=== PATIENT | male | born 1965 | race Caucasian/White ===

== ENCOUNTER 2016-10-28 05:53 | Emergency (ER) | payer MEDICAID ==
[2016-10-28 06:24] LABS: Hematocrit 29.7 % (42.0-52.0); Hemoglobin 10.3 gm/dL (13.5-18.0); Mean Cell Volume 93.4 fl (78-100); Mean Corpuscular Hemoglobin 32.4 pg (27-31); Mean Corpuscular Hgb Conc 34.7 g/dl (32-36); Neutrophil # 2.4 K/mm3 (1.3-6.0); Neutrophil % 51.1 % (42-75.0); Platelet Count 130 K/mm3 (150-450); Red Blood Count 3.18 M/mm3 (4.7-6.0); Red Cell Distribution Width 12.5 % (11.5-14.0); White Blood Count 4.8 K/mm3 (4.0-10.5)
--- NOTE | 2016-10-28 06:25 | ERNOTE ---
Upper Extremity HPI - General Extremities Pain Location: arm: left - tenderness and swelling Time Seen by Provider: 10/28/16 06:08 Source: patient Exam Limitations: no limitations - Immun/Allergies/Home Medications Immunizations: IMMUNIZATION HX Immunizations Up to Date Yes History of Influenza Vaccine No Hx Pneumococcal Vaccination No Allergies/Adverse Reactions: Allergies Allergy/AdvReac Type Severity Reaction Status Date / Time influenza virus vaccine, Allergy Severe Vomiting Verified 10/24/16 14:52 specific Home Medications: HOME MEDICATIONS Atorvastatin Calcium 40 mg PO HS #30 tablet 10/25/16 [Last Taken Unknown] Blood Sugar Checking Device 1 kit SC DAILY 365 Days 10/25/16 [Last Taken Unknown ] Fenofibrate,Micronized [Lofibra] 134 mg PO HS #30 capsule 10/25/16 [Last Taken Unknown] Insulin Detemir [Levemir] 37 units SC DAILY #2 vial 10/25/16 [Last Taken Unknown ] Montelukast Sodium [Singulair] 10 mg PO DAILY #30 tablet 10/25/16 [Last Taken Unknown] Pantoprazole Sodium [Protonix] 20 mg PO DAILY #30 tablet.dr 10/25/16 [Last Taken Unknown] Sertraline HCl [Zoloft] 50 mg PO DAILY #30 tablet 10/25/16 [Last Taken Unknown] amLODIPine BESYLATE [Norvasc] 5 mg PO DAILY #30 tablet 10/25/16 [Last Taken Unknown] - History of Present Illness Narrative: Pt was admitted to this hospital last week for acute kidney injury and hyperkalemia. His left arm began to be more swollen and sore soon after his admission and is continuing to worsen. He did have an IV in the left hand but not close to where he has pain Occurred: last week Severity: moderate Method of Injury: Reports: no apparent injury Modifying Factors - (Improves): Reports: immobilization Modifying Factors - (Worsens): Reports: movement Review of Systems - Review of Systems Constitutional: Present: recent illness EYE: Present: no symptoms reported ENT: Present: no symptoms reported Respiratory: Absent: shortness of breath Cardiology: Absent: chest pain Gastrointestinal/Abdominal: Present: no symptoms reported Genitourinary: Present: no symptoms reported Musculoskeletal: Present: See HPI, muscle pain - left bicep Skin: Absent: rash Neurological: Present: no symptoms reported - Patient's Past Medical History Patient History - Medical: Anxiety, Arthritis, Diabetes Type 2 Insulin Dependent , Depression, GERD Patient History - Cancer: No Hx of Cancer Patient History - Surgical Procedures: Vasectomy, Other - Family History Father Family History - Cardiac/Respiratory: Myocardial Infarction Mother Family History - Cardiac/Respiratory: CVA/Stroke, Myocardial Infarction - Social History Living Situations: home Smoking Status: Never smoker Have you smoked in the past 12 months: No Do you dip or chew tobacco: Yes Alcohol Use: occasionally Drug Use: none Physical Exam - Physical Exam General Appearance: Present: wd/wn, alert, mild distress Ears, Nose, Throat: Present: normal ENT inspection, hearing grossly normal Neck: Present: normal inspection, nontender Respiratory: Present: no respiratory distress, no accessory muscle use Back Exam: Present: normal inspection, normal range of motion Extremity Exam: Present: extremity edema - left upper extremity around upper arm , other - Tenderness specifically in the medial left arm just proximal to the elbow along brachial vein area Neurological Exam: Present: alert, oriented, normal mood/affect, no motor/ sensory deficits - some weakness to the left hand but due to pain not deficit Skin Exam: Present: normal color, warm/dry Lymphatic Exam: Present: no adenopathy ED Progress - Results and Orders Patient's Lab Results:: I have reviewed the patient's lab results. Results and Orders: Laboratory Tests 10/28/16 10/28/16 10/28/16 06:20 06:20 06:20 WBC 4.8 Hgb 10.3 L Hct 29.7 L Plt Count 130 L ESR 37 H D-Dimer C-Reactive Prot, Quant 0.6 10/28/16 06:20 WBC Hgb Hct Plt Count ESR D-Dimer 0.21 C-Reactive Prot, Quant - Vital Signs Patient's Vital Signs:: I have reviewed the patient's vital signs. Vital Signs: Vital Signs 10/28/16 05:53 Temperature 36.2 C L Pulse Rate 72 Respiratory 18 Rate Blood Pressure 146/85 O2 Sat by Pulse 100 Oximetry - Progress/Reassessment Chief Complaint: Upper Extremity Injury/Problem Departure Clinical Impression: Arm pain, medial Qualifiers: Laterality: right Qualified Code(s): M79.601 - Pain in right arm - Departure Disposition: Home self-care Condition: Good Instructions: Hematoma, [id number]-[id number] Additional Instructions: See your regular doctor or return to ER if you are worsening. Use Ibuprofen or Aleve for pain as needed Referrals: Miguel Angel Jacobo, [Primary Care Provider] -
[2016-10-28 07:23] VITALS: BP 137/89
== END 2016-10-28 07:23 | disposition home or self-care (01) ==
LOC: ER 05:53
DX: M79.601 Pain in right arm (principal)

== ENCOUNTER 2016-11-13 10:03 | Emergency (ER) | payer MEDICAID ==
--- NOTE | 2016-11-13 10:27 | ERNOTE ---
Upper Extremity HPI - Narrative Date of Service: 11/13/16 - General Time Seen by Provider: 11/13/16 10:21 Source: patient Exam Limitations: no limitations - Immun/Allergies/Home Medications Immunizations: IMMUNIZATION HX Immunizations Up to Date Yes History of Influenza Vaccine No Hx Pneumococcal Vaccination No Allergies/Adverse Reactions: Allergies Allergy/AdvReac Type Severity Reaction Status Date / Time influenza virus vaccine, Allergy Severe Vomiting Verified 11/13/16 10:14 specific Home Medications: HOME MEDICATIONS Atorvastatin Calcium 40 mg PO HS #30 tablet 10/25/16 [Last Taken Unknown] Blood Sugar Checking Device 1 kit SC DAILY 365 Days 10/25/16 [Last Taken Unknown ] Fenofibrate,Micronized [Lofibra] 134 mg PO HS #30 capsule 10/25/16 [Last Taken Unknown] Insulin Detemir [Levemir] 37 units SC DAILY #2 vial 10/25/16 [Last Taken Unknown ] Montelukast Sodium [Singulair] 10 mg PO DAILY #30 tablet 10/25/16 [Last Taken Unknown] Pantoprazole Sodium [Protonix] 20 mg PO DAILY #30 tablet. 10/25/16 [Last Taken Unknown] Sertraline HCl [Zoloft] 50 mg PO DAILY #30 tablet 10/25/16 [Last Taken Unknown] amLODIPine BESYLATE [Norvasc] 5 mg PO DAILY #30 tablet 10/25/16 [Last Taken Unknown] Ibuprofen [Motrin] 800 mg PO .Q8H #30 tablet 11/13/16 [Last Taken Unknown] Sulfamethoxazole/Trimethoprim [Bactrim Ds] 1 tab PO BID #20 tab 11/13/16 [Last Taken Unknown] - History of Present Illness Narrative: Admitted to hospital near 11/25/16, reports having hand and arm swelling post discharge to the [facility]. States this was the arm his IV was in during his hospital stay. He saw Dr. Jacobo in office, who felt symptoms were related to infiltrated IV. He reports swelling improved, but not some increase in swelling today. Severity: mild Modifying Factors - (Improves): Reports: other - use of arm causes discomfort Modifying Factors - (Worsens): Reports: cold therapy Review of Systems - Review of Systems Constitutional: Absent: fever, chills, fatigue, malaise Respiratory: Absent: shortness of breath, cough Cardiology: Absent: chest pain Gastrointestinal/Abdominal: Absent: nausea, vomiting Musculoskeletal: Present: other - LUE pain, intermittent Skin: Absent: rash, other - redness - Patient's Past Medical History Patient History - Medical: Anxiety, Arthritis, Diabetes Type 2 Insulin Dependent , Depression, GERD Patient History - Cancer: No Hx of Cancer Patient History - Surgical Procedures: Vasectomy, Other - Family History Father Family History - Cardiac/Respiratory: Myocardial Infarction Mother Family History - Cardiac/Respiratory: CVA/Stroke, Myocardial Infarction - Social History Living Situations: home Smoking Status: Never smoker Do you dip or chew tobacco: Yes Alcohol Use: occasionally Drug Use: none Physical Exam - Physical Exam General Appearance: Present: wd/wn, alert, no apparent distress Respiratory: Present: no respiratory distress, normal breath sounds, no accessory muscle use. Absent: rales, rhonchi, wheezing Cardiovascular/Chest: Present: regular rate, rhythm, no murmur Peripheral Pulses: N=norm/S=strong/W=weak/B=bound/A=absent: Radial (L): Weak Extremity Exam: Present: extremity edema - trace edema to L. hand in comparison to R., other - Tenderness along previous IV site L. hand, vein firm and tender up to L. AC, no erythema Neurological Exam: Absent: motor weakness - stregth equal BUE Skin Exam: Present: normal color, warm/dry ED Progress - Date and Time Seen: Date and Time: 11/13/16 12:41 Reviewed US results and discharge plan of care with pt. - Results and Orders Patient's Lab Results:: I have reviewed the patient's lab results. - Vital Signs Patient's Vital Signs:: I have reviewed the patient's vital signs. Vital Signs: Vital Signs 11/13/16 10:11 Temperature 36.7 C Pulse Rate 71 Respiratory 18 Rate Blood Pressure 131/74 O2 Sat by Pulse 99 Oximetry - CT/Ultrasound CT/Ultrasound Narrative: [facility] PATIENT RADIOLOGY STUDY REPORT Patient Patient Name:BRADLEY ACEVEDO Date: 1965 Sex: M Order Number: [id number] Unique Exam ID: [id number] Exam Requested: VENOUS-LT - US Venous Ext Limited LT * Date Scheduled: Study Priority: Requesting Service: Requesting Physician: Lea Waters Reason for Exam: Radiological Report : Exam Date: 11/13/2016 10:33 Ordering Physician: Lea Waters HISTORY: Left forearm IV with pain and swelling LEFT UPPER EXTREMITY DUPLEX VENOUS ULTRASOUND COMPARISON: None Grayscale images of the left upper extremity veins were obtained. The veins were evaluated using color-flow and Doppler technique. The internal jugular, brachiocephalic, subclavian, axillary, brachial veins are patent using color-flow and Doppler technique. The subclavian vein could not be compressed due to the overlying clavicle. The remaining veins are compressible. The superficial basilic and cephalic veins demonstrate echogenic noncompressible clot consistent with superficial thrombophlebitis. IMPRESSION: 1. NORMAL ULTRASOUND OF THE LEFT UPPER EXTREMITY DEEP VENOUS SYSTEM; NO EVIDENCE FOR DEEP VENOUS THROMBUS. 2. SUPERFICIAL THROMBOPHLEBITIS INVOLVING THE LEFT BASILIC AND CEPHALIC VEINS Electronically signed by Quinn Tran M.D.. Approved by: Approval Date: 11-13-2016 Approval Time: 12:07 PM THIS REPORT WAS RECEIVED FROM THE [employer] SYSTEM Patient Patient Name:BRADLEY ACEVEDO Date: 1965 Sex: M Order Number: [id number] Unique Exam ID: [id number] Exam Requested: [id number] - US Art Doppler Up Limit LT * Date Scheduled: Study Priority: Requesting Service: Requesting Physician: Lea Waters Reason for Exam: Radiological Report : Exam Date: 11/13/2016 10:33 Ordering Physician: Lea Waters HISTORY: Left Mid arm pain and swelling LEFT UPPER EXTREMITY ARTERIAL DUPLEX DOPPLER COMPARISON: None Technique: Ultrasound grayscale images of the arteries of the left upper extremity were obtained. There is very evaluated using color-flow Doppler technique. Findings: The left common carotid, subclavian, axillary, brachial, radial, and ulnar arteries are patent using color-flow Doppler technique. Normal velocities were obtained. Waveforms appear normal. IMPRESSION: 1. NORMAL LEFT UPPER EXTREMITY ARTERIAL DOPPLER Electronically signed by Quinn Tran M.D.. Approved by: Approval Date: 11-13-2016 Approval Time: 12:14 PM THIS REPORT WAS RECEIVED FROM THE [employer] SYSTEM - Progress/Reassessment Chief Complaint: Upper Extremity Injury/Problem Departure Clinical Impression: Thrombophlebitis arm - Departure Disposition: Home self-care Condition: Good Instructions: Phlebitis Additional Instructions: Schedule follow up appt with Dr. Jacobo in 1 week. Return to ER if symptoms worsen, or you develop fever, chills, redness to left arm Referrals: Miguel Angel Jacobo DO [Primary Care Provider] - Prescriptions: Ibuprofen [Motrin] 800 mg PO .Q8H #30 tablet Sulfamethoxazole/Trimethoprim [Bactrim Ds] 1 tab PO BID #20 tab
[2016-11-13 10:42] LABS: Hematocrit 30.1 % (42.0-52.0); Hemoglobin 10.4 gm/dL (13.5-18.0); Mean Cell Volume 90.9 fl (78-100); Mean Corpuscular Hemoglobin 31.4 pg (27-31); Mean Corpuscular Hgb Conc 34.6 g/dl (32-36); Mean Platelet Volume 10.1 fl (6.0-9.5); Neutrophil # 2.9 K/mm3 (1.3-6.0); Neutrophil % 55.7 % (42-75.0); Platelet Count 162 K/mm3 (150-450); Red Blood Count 3.31 M/mm3 (4.7-6.0); Red Cell Distribution Width 12.2 % (11.5-14.0); White Blood Count 5.3 K/mm3 (4.0-10.5)
[2016-11-13 11:07] LABS: Albumin * 4.2 gm/dl (3.4-5.0); Anion Gap 19.5 mmol/L (6.8-13.8); BUN/Creatinine Ratio 33.1 (9.0-21.6); Bilirubin, Total 0.4 mg/dL (0.0-1.1); Ca. Corrected For Albumin 8.5 mg/dL (8.4-10.2); Potassium 4.5 mmol/L (3.4-4.6); Total Protein 8.1 gm/dL (6.2-8.2)
[2016-11-13 13:55] VITALS: BP 117/78
== END 2016-11-13 12:52 | disposition home or self-care (01) ==
LOC: ER 10:03
DX: I80.8 Phlebitis and thrombophlebitis of other sites (principal); M79.602 Pain in left arm; M79.89 Other specified soft tissue disorders

== ENCOUNTER 2017-09-20 11:07 | Emergency (ER) | payer MEDICAID ==
[2017-09-20 11:23] VITALS: BP 149/90
--- NOTE | 2017-09-20 12:02 | ERNOTE ---
ENT HPI Date of Service: 09/20/17 Presenting Symptoms: eye pain Time Seen by Provider: 09/20/17 11:50 Source: patient, RN notes reviewed Exam Limitations: no limitations - Immun/Allergies/Home Medications Immunizations: IMMUNIZATION HX Immunizations Up to Date Yes History of Influenza Vaccine No Hx Pneumococcal Vaccination No Allergies/Adverse Reactions: Allergies Allergy/AdvReac Type Severity Reaction Status Date / Time influenza virus vaccine, Allergy Severe Vomiting Verified 09/20/17 11:19 specific Home Medications: HOME MEDICATIONS Atorvastatin Calcium 40 mg PO HS #30 tablet 10/25/16 [Last Taken Unknown] Blood Sugar Checking Device 1 kit SC DAILY 365 Days 10/25/16 [Last Taken Unknown ] Fenofibrate,Micronized [Lofibra] 134 mg PO HS #30 capsule 10/25/16 [Last Taken Unknown] Insulin Detemir [Levemir] 37 units SC DAILY #2 vial 10/25/16 [Last Taken Unknown ] Montelukast Sodium [Singulair] 10 mg PO DAILY #30 tablet 10/25/16 [Last Taken Unknown] Pantoprazole Sodium [Protonix] 20 mg PO DAILY #30 tablet.dr 10/25/16 [Last Taken Unknown] Sertraline HCl [Zoloft] 50 mg PO DAILY #30 tablet 10/25/16 [Last Taken Unknown] amLODIPine BESYLATE [Norvasc] 5 mg PO DAILY #30 tablet 10/25/16 [Last Taken Unknown] Ibuprofen [Motrin] 800 mg PO .Q8H #30 tablet 11/13/16 [Last Taken Unknown] Sulfamethoxazole/Trimethoprim [Bactrim Ds] 1 tab PO BID #20 tab 11/13/16 [Last Taken Unknown] - History of Present Illness Narrative: 52 year old male presents for eye irritation. He felt as though he had something in his left eye. It then began to itch. When he woke up this morning, both eyes were matted shut and the left eye was slightly red. He reports that both eyes feel irritated. He has not continued to have any eye drainage or matting. He reports that he has been having some sinus congestion. ENT Location: Present: eye (L), ear (R) Prearrival Treatment: Present: no prearrival treatment Prior Treament: Denies: recently seen Review of Systems - Review of Systems Constitutional: Absent: recent illness, fever, chills EYE: Absent: eye pain, eye discharge, vision changes, tearing ENT: Present: nose congestion. Absent: ear pain, sore throat Respiratory: Absent: shortness of breath, cough Cardiology: Present: no symptoms reported Gastrointestinal/Abdominal: Present: no symptoms reported Genitourinary: Present: no symptoms reported Musculoskeletal: Present: no symptoms reported Skin: Absent: rash, lesions, change in color Neurological: Absent: headache, dizziness/light-headedness Endocrine: Present: no symptoms reported Hematologic/Lymphatic: Present: no symptoms reported Psych: Present: no symptoms reported - Patient's Past Medical History Patient History - Medical: Anxiety, Arthritis, Diabetes Type 2 Insulin Dependent , Depression, GERD Patient History - Cardiac/Respiratory: Asthma, Hyperlipidemia Patient History - Cancer: No Hx of Cancer Patient History - Surgical Procedures: Vasectomy, Other Patient History - Other: None - Family History Father Family History - Cardiac/Respiratory: Myocardial Infarction Mother Family History - Cardiac/Respiratory: CVA/Stroke, Myocardial Infarction - Social History Living Situations: home Abuse History: No History of abuse Psych History: Hx of Anxiety, Hx of Depression Smoking Status: Never smoker Have you smoked in the past 12 months: No Do you dip or chew tobacco: Yes Alcohol Use: occasionally Drug Use: none - Immunizations Immunizations Up to Date: Yes Hx Pneumococcal Vaccination: No History of Influenza Vaccine: No Physical Exam - Physical Exam General Appearance: Present: wd/wn, alert, no apparent distress Head Exam: Present: normal inspection, no evidence of injury Eye Exam: PERRL: bilateral, EOMI: bilateral, Other: bilateral - No drainage or photophobia noted, mild conjunctival injection worse on left than right Ears, Nose, Throat: Present: normal ENT inspection, normal pharynx Neck: Present: normal inspection, nontender, supple Respiratory: Present: no respiratory distress, normal breath sounds, lungs clear Cardiovascular/Chest: Present: regular rate, rhythm, no murmur Neurological Exam: Present: alert, oriented, normal mood/affect Skin Exam: Present: normal color, warm/dry ED Progress - Vital Signs Patient's Vital Signs:: I have reviewed the patient's vital signs. Vital Signs: Vital Signs 09/20/17 11:19 Temperature 36.8 C Pulse Rate 106 H Respiratory 18 Rate Blood Pressure 149/90 O2 Sat by Pulse 98 Oximetry - Progress/Reassessment Chief Complaint: Eye Injury/Trauma Progress:: Unchanged Departure Clinical Impression: Conjunctivitis, viral - Departure Disposition: Home self-care Condition: Good Additional Instructions: Avoid rubbing eyes Ibuprofen may help with inflammation Artificial tears may also help Follow up for purulent eye drainage or other worsening symptoms Referrals: Miguel Angel Jacobo DO [Primary Care Provider] -
== END 2017-09-20 12:05 | disposition home or self-care (01) ==
LOC: ER 11:07
DX: B30.9 Viral conjunctivitis, unspecified (principal); F17.220 Nicotine dependence, chewing tobacco, uncomplicated

== ENCOUNTER 2021-01-25 18:54 | Observation (INO) ==
[2021-01-25 19:33] LABS: Hemoglobin 9.6 gm/dL (13.5-18.0); Mean Cell Volume 81.8 fl (78-100); Mean Corpuscular Hemoglobin 25.3 pg (27-31); Mean Platelet Volume 9.8 fl (8-11.3); Neutrophil # 3.2 K/mm3 (1.3-6.0); Neutrophil % 56.8 % (42-75.0); Platelet Count 149 K/mm3 (150-450); Red Blood Count 3.79 M/mm3 (4.7-6.0); Red Cell Distribution Width 14.8 % (11.5-14.0); White Blood Count 5.6 K/mm3 (4.0-10.5)
[2021-01-25] MEDS ORDERED: ASPIRIN 81 MG TAB.CHEW PO ONE (19:46)
--- NOTE | 2021-01-25 19:47 | ERNOTE ---
<Jessica Barrett - Last Filed: 01/25/21 21:32> Chest Pain/Cardiac HPI Date of Service: 01/25/21 Chief Complaint: Chest Pain Time Seen by Provider: 01/25/21 19:20 Source: patient Exam Limitations: no limitations Immunizations: IMMUNIZATION HX Immunizations Up to Date Yes History of Influenza Vaccine No Hx Pneumococcal Vaccination No Allergies/Adverse Reactions: Allergies shellfish derived Allergy (Severe, Verified 11/28/20 12:49) Anaphylaxis influenza virus vaccine, specific Adverse Reaction (Mild, Verified 11/28/20 12:49) Vomiting Home Medications: HOME MEDICATIONS Blood-Glucose Meter [Blood Glucose Monitoring] 1 ea MC DAILY 03/02/18 [Last Taken 03/07/18] blood sugar diagnostic See Dose Instructions .ROUTE .MEDSUPPLY #20 ea 06/23/18 [Last Taken Unknown] lancets See Dose Instructions .ROUTE .MEDSUPPLY #50 ea 06/23/18 [Last Taken Unknown] cyclobenzaprine 10 mg tablet 10 mg PO TID PRN #60 tab 08/12/19 [Last Taken Unknown] hydrocodone 5 mg-acetaminophen 325 mg tablet 1 tab PO Q4H PRN #40 tab 11/15/19 [Last Taken Unknown] insulin syringe-needle U-100 1 mL 30 gauge x 03/10" See Dose Instructions .ROUTE .MEDSUPPLY #100 ea 04/03/20 [Last Taken Unknown] sildenafil 100 mg tablet 100 mg PO DAILY PRN #10 tab 04/05/20 [Last Taken Unknown] amlodipine 5 mg tablet 5 mg PO DAILY #90 tab 05/11/20 [Last Taken Unknown] lisinopril 40 mg tablet 40 mg PO DAILY #90 tab 05/11/20 [Last Taken Unknown] montelukast 10 mg tablet 10 mg PO HS #90 tab 05/11/20 [Last Taken Unknown] nortriptyline 25 mg capsule 25 mg PO HS #90 cap 05/11/20 [Last Taken Unknown] pantoprazole 20 mg tablet,delayed release 20 mg PO DAILY #90 tab 05/11/20 [Last Taken Unknown] rosuvastatin 40 mg tablet 40 mg PO HS #90 tab 05/11/20 [Last Taken Unknown] sertraline 50 mg tablet 50 mg PO DAILY #90 tab 05/11/20 [Last Taken Unknown] tramadol 50 mg tablet 50 mg PO Q6H PRN #60 tab 10/30/20 [Last Taken Unknown] triamcinolone acetonide 0.1 % topical cream 1 applic TP BID #80 g 10/30/20 [Last Taken Unknown] fenofibrate nanocrystallized 145 mg tablet 145 mg PO DAILY #30 tab 11/27/20 [Last Taken Unknown] insulin detemir U-100 100 unit/mL subcutaneous solution 62 unit SUBCUT BID #90 ml 11/27/20 [Last Taken Unknown] albuterol sulfate 90 mcg/actuation aerosol inhaler 2 inh IH QID PRN #18 g 11/28/20 [Last Taken Unknown] Syringe and Needle,Insulin,1Ml [Techlite Insulin Syringe] 1 b SQ .MEDSUPPLY 01/25/21 [Last Taken Unknown] Pain Score #1 Pain Score: 4 Narrative: The patient is a 55 year old male who presents via POV for chest pain which has been present since 1529. There are associated symptoms of diaphoresis, dyspnea and radiation of pain to left arm and neck. The patient reports pain to left arm and anterior chest, 4/10. There are no alleviating factors. There are no aggravating factors. Previous treatments have included: none. The past medical history includes: DM, HTN, HLD, GERD and asthma. The social history is positive for chew tobacco. The patient has had no known ill contacts. Patient states he was driving when pain developed to left anterior chest and arm. Patient states that patient has also intermittently radiating through to back and left neck. Patient states at onset of discomfort he did have onset of nausea and diaphoresis. Review of Systems - Review of Systems Constitutional: Present: no symptoms reported. Absent: fever, chills, fatigue EYE: Present: no symptoms reported ENT: Present: no symptoms reported. Absent: ear pain, nasal drainage, sore throat Respiratory: Present: shortness of breath. Absent: cough Cardiology: Present: chest pain Gastrointestinal/Abdominal: Present: nausea. Absent: vomiting, diarrhea, abdominal pain Genitourinary: Present: no symptoms reported. Absent: dysuria, decreased urin kristy output Musculoskeletal: Present: back pain Skin: Present: no symptoms reported. Absent: rash Neurological: Present: no symptoms reported. Absent: headache, dizziness/light- headedness All Other Systems: All systems neg except as marked Medical History (Last Reviewed 01/25/21 @ 19:41 by JEANNA De La Garza) Diverticulosis (Chronic) Onset Date: 03/08/18 Diabetes mellitus, type 2 (Chronic) HTN (hypertension) (Chronic) HLD (hyperlipidemia) (Chronic) GERD (gastroesophageal reflux disease) (Chronic) Asthma (Chronic) Onset Date: Unknown Allergy to influenza vaccine Onset Date: Unknown Hypercholesteremia Acute nontraumatic kidney injury Arm pain, medial Conjunctivitis, viral Hyperkalemia Onset Date: 10/24/16 Noncompliance with medication regimen Otitis externa Onset Date: 01/30/15 Sinusitis Onset Date: 02/15/15 Thrombophlebitis arm Diabetic eye exam Onset Date: 02/26/18 Diabetic retinopathy was not found in either eye. Acute kidney failure Onset Date: 10/24/16 Hyperglycemia due to type 2 diabetes mellitus Surgical History: Surgical History (Last Reviewed 01/25/21 @ 19:41 by JEANNA De La Garza) History of colonoscopy Onset Date: 03/08/18 Dr. Vineet Hi, [facility]. Diverticulosis. Repeat 10 years. History of nasal surgery Onset Date: Unknown History of tonsillectomy Onset Date: Unknown History of vasectomy Onset Date: Unknown Family History: Family History (Last Reviewed 01/25/21 @ 19:41 by JEANNA De La Garza) Mother Myocardial infarction History of stroke Sister Cancer Father Myocardial infarction Internal bleeding Social History: (Last Reviewed 01/25/21 @ 19:41 by JEANNA De La Garza) Social History: adopted: No Marital status: lives independently: Yes household members: none number of children: 4 current occupational status: employed current occupation: [employer]: No Tobacco: Smoking Status: Former smoker Smokeless tobacco user: chewing tobacco Alcohol: alcohol intake: current Alcohol type: beer alcohol intake frequency: a few times a week Substance Use: substance use type: former substance user Dietary Habits: caffeine: Yes Physical Exam - Physical Exam General Appearance: Present: wd/wn, alert, no apparent distress Head Exam: Present: normal inspection, no evidence of injury Eye Exam: Normal inspection: bilateral Neck: Present: normal inspection Respiratory: Present: no respiratory distress, normal breath sounds, no accessory muscle use, chest nontender, lungs clear Cardiovascular/Chest: Present: regular rate, rhythm, no murmur Gastrointestinal/Abdominal: Present: normal bowel sounds, nontender, nondistended, soft, no organomegaly Extremity Exam: Present: no edema Neurological Exam: Present: alert, oriented, normal mood/affect, no motor/sensory deficits Skin Exam: Present: normal color, warm/dry Progress - Results and Orders Patient's Lab Results:: I have reviewed the patient's lab results. - Vital Signs Patient's Vital Signs:: I have reviewed the patient's vital signs. Vital Signs: Vital Signs 01/25/21 19:01 Temperature 37.5 C Pulse Rate 92 Respiratory Rate 16 Blood Pressure 175/100 H O2 Sat by Pulse Oximetry 99 - EKG EKG #1 EKG: NSR - sinus arrhythmia EKG read: Reviewed by me EKG Comments: No acute ST elevation, no acute ischemic change, no ectopy - Progress/Reassessment Chief Complaint: Chest Pain - Transfer of Care Physician Sign Out: Jessica Barrett Receiving Physician: Naila Rao Pending Results: Labs Expected Disposition: Discharge Departure Clinical Impression: Chest pain Qualifiers: Chest pain type: unspecified Qualified Code(s): R07.9 - Chest pain, unspecified - Departure Disposition: Short Term Hospital Inpatient Condition: Good Referrals: Miguel Angel Jacobo DO [Primary Care Provider] - <Naila Rao - Last Filed: 01/25/21 23:34> Chest Pain/Cardiac HPI Immunizations: IMMUNIZATION HX Immunizations Up to Date Yes History of Influenza Vaccine No Hx Pneumococcal Vaccination No Medical History (Last Reviewed 01/25/21 @ 19:41 by JEANNA De La Garza) Diverticulosis (Chronic) Onset Date: 03/08/18 Diabetes mellitus, type 2 (Chronic) HTN (hypertension) (Chronic) HLD (hyperlipidemia) (Chronic) GERD (gastroesophageal reflux disease) (Chronic) Asthma (Chronic) Onset Date: Unknown Allergy to influenza vaccine Onset Date: Unknown Hypercholesteremia Acute nontraumatic kidney injury Arm pain, medial Conjunctivitis, viral Hyperkalemia Onset Date: 10/24/16 Noncompliance with medication regimen Otitis externa Onset Date: 01/30/15 Sinusitis Onset Date: 02/15/15 Thrombophlebitis arm Diabetic eye exam Onset Date: 02/26/18 Diabetic retinopathy was not found in either eye. Acute kidney failure Onset Date: 10/24/16 Hyperglycemia due to type 2 diabetes mellitus Surgical History: Surgical History (Last Reviewed 01/25/21 @ 19:41 by JEANNA De La Garza) History of colonoscopy Onset Date: 03/08/18 Dr. Vineet Hi, [facility]. Diverticulosis. Repeat 10 years. History of nasal surgery Onset Date: Unknown History of tonsillectomy Onset Date: Unknown History of vasectomy Onset Date: Unknown Family History: Family History (Last Reviewed 01/25/21 @ 19:41 by JEANNA De La Garza) Mother Myocardial infarction History of stroke Sister Cancer Father Myocardial infarction Internal bleeding Social History: (Last Reviewed 01/25/21 @ 19:41 by JEANNA De La Garza) Social History: adopted: No Marital status: lives independently: Yes household members: none number of children: 4 current occupational status: employed current occupation: [employer]: No Tobacco: Smoking Status: Former smoker Smokeless tobacco user: chewing tobacco Alcohol: alcohol intake: current Alcohol type: beer alcohol intake frequency: a few times a week Substance Use: substance use type: former substance user Dietary Habits: caffeine: Yes Progress - Vital Signs Vital Signs: Vital Signs 01/25/21 19:01 01/25/21 19:55 01/25/21 19:56 Temperature 37.5 C Pulse Rate 92 91 82 Respiratory Rate 16 18 18 Blood Pressure 175/100 H 152/87 H 144/84 H O2 Sat by Pulse Oximetry 99 97 97 01/25/21 20:23 01/25/21 20:38 01/25/21 22:00 Temperature Pulse Rate 81 89 77 Respiratory Rate 18 18 16 Blood Pressure 143/98 H 172/87 H 195/90 H O2 Sat by Pulse Oximetry 97 96 100 01/25/21 22:07 01/25/21 22:43 Temperature Pulse Rate 84 91 Respiratory Rate 16 18 Blood Pressure 169/88 H 163/81 H O2 Sat by Pulse Oximetry 98 97 Plan - Plan Plan: Patient was given morphine 2 mg IV for left chest pain he rated it approximately a 2-3. Blood pressure initially was systolic 167. Patient's cardiac score is moderate. Pain at time of reassessment was completely resolved. Delta troponin was within normal limits. Patient is admitted per Dr. Frank for troponin trending. Last stress test was 2013. EJ was 67%
[2021-01-25 19:51] LABS: INR 1.1 INR (0.92-1.08); Partial Thrombolplastin Time 27.5 Seconds (24-32); Prothrombin Time (Patient) 11.4 Seconds (9.1-10.7)
[2021-01-25 19:52] LABS: ALT 49 U/L (19-67); AST 57 U/L (0-48); Alkaline Phosphatase * 83 U/L (50-170); Anion Gap 14.5 mmol/L (6.8-13.8); BUN/Creatinine Ratio 20.3 (9.0-21.6); Bilirubin, Total 0.3 mg/dL (0.0-1.1); Blood Urea Nitrogen 25 mg/dL (6-23); Ca. Corrected For Albumin 9.6 mg/dL (8.4-10.2); Calcium * 9.9 mg/dL (7.9-10.9); Carbon Dioxide 23.6 mmol/L (24-32.6); Chloride 100 mmol/L (97-106); Glucose * 145 mg/dL (70-110); Potassium 4.1 mmol/L (3.4-4.6); Sodium 134 mmol/L (132-142)
[2021-01-25 19:58] LABS: Troponin I Less than 0.017 ng/mL (0.00-0.10)
[2021-01-25] MEDS ORDERED: MORPHINE SULFATE 4 MG/ML SYRG IV ONE (21:57)
--- NOTE | 2021-01-26 09:32 | HPDIS ---
Chief Complaint - Chief Complaint Date of Service: 01/26/21 Time of Service: 09:31 Chief Complaint: Chest pain History of Present Illness: Blas Gifford is a 55-year-old white male with past medical history significant for hypertension, hyperlipidemia, diabetes mellitus type 2, asthma, GERD, patient of Dr. Jacobo who was admitted on 01/25/2021 because of chest pain. Patient developed chest pain yesterday afternoon which she described as squee zing in character, 8/10, mostly in his left parasternal area but at times radiating to his neck and to his left upper extremity. This was not related to activity. Associated symptoms were sweating and shortness of breath. The patient's EKG showed sinus arrhythmia with no significant ST-T wave changes. He was then admitted for observation due to his multiple medical problems which increases his risk for his cardiac etiology of his chest pain. His chest x-ray showed no acute cardiopulmonary findings. He is currently chest pain-free. History sets of troponin were all within normal. Medical History (Last Reviewed 01/26/21 @ 01:11 by Kiera Rojas RN) Diverticulosis (Chronic) Onset Date: 03/08/18 Diabetes mellitus, type 2 (Chronic) HTN (hypertension) (Chronic) HLD (hyperlipidemia) (Chronic) GERD (gastroesophageal reflux disease) (Chronic) Asthma (Chronic) Onset Date: Unknown Allergy to influenza vaccine Onset Date: Unknown Hypercholesteremia Acute nontraumatic kidney injury Arm pain, medial Conjunctivitis, viral Hyperkalemia Onset Date: 10/24/16 Noncompliance with medication regimen Otitis externa Onset Date: 01/30/15 Sinusitis Onset Date: 02/15/15 Thrombophlebitis arm Diabetic eye exam Onset Date: 02/26/18 Diabetic retinopathy was not found in either eye. Acute kidney failure Onset Date: 10/24/16 Hyperglycemia due to type 2 diabetes mellitus Surgical History: Surgical History (Last Reviewed 01/26/21 @ 01:11 by Kiera Rojas RN) History of colonoscopy Onset Date: 03/08/18 Dr. Vineet Hi, [facility]. Diverticulosis. Repeat 10 years. History of nasal surgery Onset Date: Unknown History of tonsillectomy Onset Date: Unknown History of vasectomy Onset Date: Unknown Family History: Family History (Last Reviewed 01/26/21 @ 01:12 by Kiera Rojas RN) Mother Myocardial infarction History of stroke Sister Cancer Father Myocardial infarction Internal bleeding Social History: (Last Updated 01/26/21 @ 01:13 by Kiera Rojas RN) Social History: adopted: No Marital status: lives independently: Yes household members: none number of children: 4 current occupational status: employed current occupation: [employer] [place] current occupational exposures/hazards: No Service: No Tobacco: Smoking Status: Former smoker Smokeless tobacco user: chewing tobacco Alcohol: alcohol intake: current Alcohol type: beer alcohol intake frequency: a few times a week Substance Use: substance use type: former substance user Dietary Habits: caffeine: Yes Review Of Systems (GEN) - Review of Systems Generalized/Overall Review: Absent: Chills, Fever EENTM: Absent: Blurred Vision Respiratory: Absent: Cough, Shortness of Breath, Orthopnea, Wheezing Cardiac: Present: Chest Pain - Resolved. Absent: Edema, Palpitations Abdominal: Absent: Nausea, Vomiting, Abdominal Pain Genitourinary: Absent: Urgency, Frequency Musculoskeletal: Present: Joint Pain Neurological: Absent: Headache, Numbness, Tingling Skin: Absent: Dryness, Lesions, Rash Endocrine: Absent: Intolerance to Cold, Intolerance to Heat Misc: All systems neg except as marked Immunizations: IMMUNIZATION HX Immunizations Up to Date Yes History of Influenza Vaccine No Hx Pneumococcal Vaccination No Allergies/Adverse Reactions: Allergies Allergy/AdvReac Type Severity Reaction Status Date / Time shellfish derived Allergy Severe Anaphylaxis Verified 11/28/20 12:49 influenza virus vaccine, AdvReac Mild Vomiting Verified 11/28/20 12:49 specific Home Medications: HOME MEDICATIONS Blood-Glucose Meter [Blood Glucose Monitoring] 1 ea [facility] DAILY 03/02/18 [Last Taken 03/07/18] blood sugar diagnostic See Dose Instructions .ROUTE .MEDSUPPLY #20 ea 06/23/18 [Last Taken Unknown] lancets See Dose Instructions .ROUTE .MEDSUPPLY #50 ea 06/23/18 [Last Taken Unknown] cyclobenzaprine 10 mg tablet 10 mg PO TID PRN #60 tab 08/12/19 [Last Taken Unkn own] insulin syringe-needle U-100 1 mL 30 gauge x 5/16" See Dose Instructions .ROUTE .MEDSUPPLY #100 ea 04/03/20 [Last Taken Unknown] sildenafil 100 mg tablet 100 mg PO DAILY PRN #10 tab 04/05/20 [Last Taken Unknown] amlodipine 5 mg tablet 5 mg PO DAILY #90 tab 05/11/20 [Last Taken 01/25/21 03:00] lisinopril 40 mg tablet 40 mg PO DAILY #90 tab 05/11/20 [Last Taken 01/25/21 03:00] montelukast 10 mg tablet 10 mg PO HS #90 tab 05/11/20 [Last Taken 01/24/21 21:00] nortriptyline 25 mg capsule 25 mg PO HS #90 cap 05/11/20 [Last Taken 01/24/21 21:00] pantoprazole 20 mg tablet,delayed release 20 mg PO DAILY #90 tab 05/11/20 [Last Taken 01/25/21 03:00] rosuvastatin 40 mg tablet 40 mg PO HS #90 tab 05/11/20 [Last Taken 01/24/21 21:00] sertraline 50 mg tablet 50 mg PO DAILY #90 tab 05/11/20 [Last Taken 01/25/21 03:00] tramadol 50 mg tablet 50 mg PO Q6H PRN #60 tab 10/30/20 [Last Taken 01/18/21] triamcinolone acetonide 0.1 % topical cream 1 applic TP BID #80 g 10/30/20 [Last Taken 01/25/21] fenofibrate nanocrystallized 145 mg tablet 145 mg PO DAILY #30 tab 11/27/20 [Last Taken 01/25/21 03:00] albuterol sulfate 90 mcg/actuation aerosol inhaler 2 inh IH QID PRN #18 g 11/28/20 [Last Taken Unknown] Syringe and Needle,Insulin,1Ml [Techlite Insulin Syringe] 1 b SQ .MEDSUPPLY 01/25/21 [Last Taken Unknown] Aspirin [Aspirin Chewable] 81 mg PO DAILY #30 tab.chew 01/26/21 [Last Taken Unknown] Insulin Detemir [Levemir] 70 units SC BID 01/26/21 [Last Taken 01/25/21 03:00] Metoprolol Succinate [Toprol Xl] 25 mg PO DAILY #30 tablet.sa 01/26/21 [Last Taken Unknown] Exam - Exam Vital Signs: Vital Signs - Last Taken Temp 36.7 C 01/26/21 06:48 Pulse 64 01/26/21 06:48 Resp 18 01/26/21 06:48 BP 131/93 H 01/26/21 06:48 Pulse Ox 97 01/26/21 06:48 Constitutional: Present: Alert, Oriented x3, Cooperative, Well developed, Well nourished ENT Exam: Present: hearing grossly normal Eye Exam: bilateral eye: normal inspection, PERRL, EOMI Neck: Present: supple. Absent: lymphadenopathy (R), lymphadenopathy (L) Respiratory: Present: normal breath sounds, No rales, No wheezing Cardiovascular/Chest: Present: regular rate, rhythm, no JVD, no murmur Abdomen: Present: Normal bowel sounds, soft, nontender, nondistended Extremity: Present: no calf tenderness. Absent: lower extremity edema Skin Exam: Present: normal color. Absent: diaphoresis Diagnostic Studies: Abnormal Lab Results 01/25/21 01/25/21 01/25/21 Range/Units 19:28 19:28 19:28 RBC 3.79 L (4.7-6.0) M/mm3 Hgb 9.6 L (13.5-18.0) gm/dL Hct 31.0 L (42.0-52.0) % MCH 25.3 L (27-31) pg MCHC 31.0 L (32-36) g/dl RDW 14.8 H (11.5-14.0) % Plt Count 149 L (150-450) K/mm3 Immature Gran % (Auto) 0.50 H (0.001-0.429) % PT 11.4 H (9.1-10.7) Seconds INR (Anticoag Therapy) 1.10 H (0.92-1.08) INR Carbon Dioxide 23.6 L (24-32.6) mmol/L Anion Gap 14.5 H (6.8-13.8) mmol/L BUN 25 H (6-23) mg/dL Random Glucose 145 H (70-110) mg/dL AST 57 H (0-48) U/L Laboratory Results WBC 5.6 K/mm3 (4.0-10.5) 01/25/21 19:28 RBC 3.79 M/mm3 (4.7-6.0) L 01/25/21 19:28 Hgb 9.6 gm/dL (13.5-18.0) L 01/25/21 19: Hct 31.0 % (42.0-52.0) L 01/25/21 19: MCV 81.8 fl (78-100) 01/25/21 19: MCH 25.3 pg (27-31) L 01/25/21: MCHC 31.0 g/dl (32-36) L 01/25/21: RDW 14.8 % (11.5-14.0) H 01/25/21: Plt Count 149 K/mm3 (150-450) L 01/25/21: MPV 9.8 fl (8-11.3) 01/25/21: Immature Gran % (Auto) 0.50 % (0.001-0.429) H 01/25/21: Immature Gran # (Auto) 0.03 K/mm3 (0.000-0.0310) 01/25/21: Neutrophils % 56.8 % (42-75.0) 01/25/21: Lymphocytes % 32.4 % (20-51) 01/25/21: Monocytes % 7.8 % (0.0-9) 01/25/21: Eosinophils % 1.6 % (0.0-3.0) 01/25/21: Basophils % 0.9 % (0.0-1.0) 01/25/21: Nucleated RBC % 0.0 k/mm3 (0-1) 01/25/21 19: Neutrophils # 3.2 K/mm3 (1.3-6.0) 01/25/21 19: Lymphocytes # 1.82 k/mm3 (1.5-3.5) 01/25/21 19: Monocytes # 0.4 k/mm3 (0.0-1.0) 01/25/21: Eosinophils # 0.1 k/mm3 (0.0-0.7) 01/25/21 19: Absolute Basophils 0.1 k/mm3 (0.0-0.1) 01/25/21 19: PT 11.4 Seconds (9.1-10.7) H 01/25/21 19: INR (Anticoag Therapy) 1.10 INR (0.92-1.08) H 01/25/21 19:28 PTT (Dougie) 27.5 Seconds (24-32) 01/25/21 19:28 Sodium 134 mmol/L (132-142) 01/25/21 19:28 Plasma Sodium 135 mmol/L (130-142) 01/25/21 19:28 Potassium 4.1 mmol/L (3.4-4.6) 01/25/21 19:28 Chloride 100 mmol/L (97-106) 01/25/21 19:28 Carbon Dioxide 23.6 mmol/L (24-32.6) L 01/25/21 19:28 Anion Gap 14.5 mmol/L (6.8-13.8) H 01/25/21 19:28 BUN 25 mg/dL (6-23) H 01/25/21 19:28 Creatinine 1.23 mg/dL (0.4-1.4) 01/25/21 19:28 Est GFR (Non-Af Amer) 65 mL/min (60-130) D 01/25/21 19:28 BUN/Creatinine Ratio 20.3 (9.0-21.6) 01/25/21 19:28 Random Glucose 145 mg/dL (70-110) H 01/25/21 19:28 Calcium 9.9 mg/dL (7.9-10.9) 01/25/21 19:28 Calcium Adj for Albumin 9.6 mg/dL (8.4-10.2) 01/25/21 19:28 Total Bilirubin 0.3 mg/dL (0.0-1.1) 01/25/21 19:28 AST 57 U/L (0-48) H 01/25/21 19:28 ALT 49 U/L (19-67) 01/25/21 19:28 Alkaline Phosphatase 83 U/L (50-170) 01/25/21 19:28 Troponin I Less than 0.017 ng/mL (0.00-0.10) 01/26/21 01:32 Total Protein 8.0 gm/dL (6.2-8.2) 01/25/21 19:28 Albumin 4.0 gm/dl (3.4-5.0) 01/25/21 19:28 SARS-CoV-2 (PCR) Not detected (NotDetected) 01/25/21 23:40 Assessment/Plan - Narrative Narrative: Blas Gifford is a 55-year-old white male who was admitted for chest pain yesterday and has been ruled out of acute myocardial infarction. His last stress test was 2013 which was normal. I recommended another one since it has been 7 years ago. I will discharge the patient on a baby aspirin and low-dose beta-tremaine and make him follow-up with his primary care physician for discussion of a follow-up cardiac stress test due to his multiple risk factors. - Assessment/Plan (1) Chest pain Assessment: AMI ruled out Problem: Resolved Qualifiers: Chest pain type: unspecified Qualified Code(s): R07.9 - Chest pain, unspecified (2) Diverticulosis Problem: Chronic (3) Diabetes mellitus, type 2 Problem: Chronic Qualifiers: Diabetes mellitus shelter insulin use: with press tender long goods use Diabetes mellitus complication status: without complication Qualified Code(s): E11.9 - Type 2 diabetes mellitus without complications; Z79.4 - custodial (current) use of insulin (4) HTN (hypertension) Problem: Chronic Qualifiers: Hypertension type: essential hypertension Qualified Code(s): I10 - Essential (primary) hypertension (5) HLD (hyperlipidemia) Problem: Chronic Qualifiers: Hyperlipidemia type: unspecified Qualified Code(s): E78.5 - Hyperlipidemia, unspecified (6) GERD (gastroesophageal reflux disease) Problem: Chronic Qualifiers: Esophagitis presence: without esophagitis Qualified Code(s): K21.9 - Gastro-esophageal reflux disease without esophagitis (7) Asthma Problem: Chronic (1) Chest pain Diagnosis(s): Acute DC ruled out Problem: Resolved Qualifiers: Chest pain type: unspecified Qualified Code(s): R07.9 - Chest pain, unspecified (2) Diverticulosis Problem: Chronic (3) Diabetes mellitus, type 2 Problem: Chronic Qualifiers: Diabetes mellitus press tender long goods insulin use: with shelter use Diabetes mellitus complication status: without complication Qualified Code(s): E11.9 - Type 2 diabetes mellitus without complications; Z79.4 - custodial (current) use of insulin (4) HTN (hypertension) Problem: Chronic Qualifiers: Hypertension type: essential hypertension Qualified Code(s): I10 - Essential (primary) hypertension (5) HLD (hyperlipidemia) Problem: Chronic Qualifiers: Hyperlipidemia type: unspecified Qualified Code(s): E78.5 - Hyperlipidemia, unspecified (6) GERD (gastroesophageal reflux disease) Problem: Chronic Qualifiers: Esophagitis presence: without esophagitis Qualified Code(s): K21.9 - Gastro-esophageal reflux disease without esophagitis (7) Asthma Problem: Chronic Date of Discharge:: 01/26/21 Hospital Course: Blas Gifford is a 55-year-old white male with past medical history significant for hypertension, hyperlipidemia, diabetes mellitus type 2, asthma, GERD, pat ient of Dr. Jacobo who was admitted on 01/25/2021 because of chest pain. Patient developed chest pain yesterday afternoon which she described as squeezing in character, 06/04, mostly in his left parasternal area but at times radiating to his neck and to his left upper extremity. This was not related to activity. Associated symptoms were sweating and shortness of breath. The patient's EKG showed sinus arrhythmia with no significant ST-T wave changes. He was then admitted for observation due to his multiple medical problems which increases his risk for his cardiac etiology of his chest pain. His chest x-ray showed no acute cardiopulmonary findings. He is currently chest pain-free. His 3 sets of troponin were all within normal. He is chest pain free this morning. We will satr him on a low dose BBlocker and a a bay ASA until he does his stress test. Will schedule him a nuclear pharmacologic stress test as he sasy he is not able to walk on a treadmill due to his hip pains. Procedures Performed: none Results and Findings: Lab Pending Results 01/25/21 19:28: WBC 5.6, RBC 3.79 L, Hgb 9.6 L, Hct 31.0 L, MCV 81.8, MCH 25.3 L, MCHC 31.0 L, RDW 14.8 H, Plt Count 149 L, MPV 9.8, Immature Gran % (Auto) 0.50 H, Immature Gran # (Auto) 0.03, Neutrophils % 56.8, Lymphocytes % 32.4, Monocytes % 7.8, Eosinophils % 1.6, Basophils % 0.9, Nucleated RBC % 0.0, Neutrophils # 3.2, Lymphocytes # 1.82, Monocytes # 0.4, Eosinophils # 0.1, Absolute Basophils 0.1 01/25/21 19:28: Sodium 134, Plasma Sodium 135, Potassium 4.1, Chloride 100, Carbon Dioxide 23.6 L, Anion Gap 14.5 H, BUN 25 H, Creatinine 1.23, Est GFR (Non-Af Amer) 65 D, BUN/Creatinine Ratio 20.3, Random Glucose 145 H, Calcium 9. 9, Calcium Adj for Albumin 9.6, Total Bilirubin 0.3, AST 57 H, ALT 49, Alkaline Phosphatase 83, Troponin I Less than 0.017, Total Protein 8.0, Albumin 4.0 01/25/21 19:28: PT 11.4 H, INR (Anticoag Therapy) 1.10 H, PTT ([place]) 27.5 01/25/21 22:25: Troponin I Less than 0.017 01/25/21 23:40: SARS-CoV-2 (PCR) Not detected 01/26/21 01:32: Troponin I Less than 0.017 Discharge Location: Home Disposition: Home self-care Condition: Good Discharge Activity: Activity as tolerated Discharge Diet: Consistent carbs Referrals: Miguel Angel Jacobo, [Primary Care Provider] - Prescriptions (Any new or edited meds): Aspirin [Aspirin Chewable] 81 mg PO DAILY #30 tab.chew Transmission Status: Pending to [facility] #[id number] Metoprolol Succinate [Toprol Xl] 25 mg PO DAILY #30 tablet.sa Transmission Status: Pending to [facility] #[id number] Complete Home Medications List: Complete Home Medication List: Blood-Glucose Meter [Blood Glucose Monitoring] 1 [facility] DAILY 03/02/18 blood sugar diagnostic See Dose Instructions .ROUTE .MEDSUPPLY #20 06/23/18 lancets See Dose Instructions .ROUTE .MEDSUPPLY #50 06/23/18 cyclobenzaprine 10 mg tablet 10 mg PO TID PRN #60 tab 08/12/19 insulin syringe-needle U-100 1 mL 30 gauge x 03/10" See Dose Instructions .ROUTE .MEDSUPPLY #100 ea 04/03/20 sildenafil 100 mg tablet 100 mg PO DAILY PRN #10 tab 04/05/20 amlodipine 5 mg tablet 5 mg PO DAILY #90 tab 05/11/20 lisinopril 40 mg tablet 40 mg PO DAILY #90 tab 05/11/20 montelukast 10 mg tablet 10 mg PO HS #90 tab 05/11/20 nortriptyline 25 mg capsule 25 mg PO HS #90 cap 05/11/20 pantoprazole 20 mg tablet,delayed release 20 mg PO DAILY #90 tab 05/11/20 rosuvastatin 40 mg tablet 40 mg PO HS #90 tab 05/11/20 sertraline 50 mg tablet 50 mg PO DAILY #90 tab 05/11/20 tramadol 50 mg tablet 50 mg PO Q6H PRN #60 tab 10/30/20 triamcinolone acetonide 0.1 % topical cream 1 applic TP BID #80 g 10/30/20 fenofibrate nanocrystallized 145 mg tablet 145 mg PO DAILY #30 tab 11/27/20 albuterol sulfate 90 mcg/actuation aerosol inhaler 2 inh IH QID PRN #18 g 11/28/20 Syringe and Needle,Insulin,1Ml [Techlite Insulin Syringe] 1 b SQ .MEDSUPPLY 01/25/21 Aspirin [Aspirin Chewable] 81 mg PO DAILY #30 tab.chew 01/26/21 Insulin Detemir [Levemir] 70 units SC BID 01/26/21 Metoprolol Succinate [Toprol Xl] 25 mg PO DAILY #30 tablet.sa 01/26/21 Amb Orders for Discharge: NUC Pharmacological Stress Time Frame: 1 Week, Facility: [facility], Location: Radiology
[2021-01-26] MEDS ORDERED: METOPROLOL SUCCINATE 25 MG TABLET.SA PO SCH (09:45)
[2021-01-26] MEDS ORDERED: ASPIRIN 81 MG TAB.CHEW PO SCH (10:00)
[2021-01-26 12:37] VITALS: BP 138/72
== END 2021-01-26 12:05 | disposition home or self-care (01) ==
LOC: ER 18:54 → MS 18:54
PROVIDERS: ADMIT Internal Medicine; ATTEND Family Medicine

== ENCOUNTER 2021-01-29 04:40 | Observation (INO) ==
[2021-01-29] MEDS ORDERED: NITROGLYCERIN 0.4 MG/TAB BTL SL PRN (04:55)
[2021-01-29] MEDS ORDERED: ASPIRIN 81 MG TAB.CHEW PO ONE (04:55)
--- NOTE | 2021-01-29 05:04 | ERNOTE ---
Chest Pain/Cardiac HPI Time Seen by Provider: 01/29/21 04:45 Source: patient Exam Limitations: no limitations Immunizations: IMMUNIZATION HX Immunizations Up to Date Yes History of Influenza Vaccine No Hx Pneumococcal Vaccination No Allergies/Adverse Reactions: Allergies shellfish derived Allergy (Severe, Verified 01/29/21 04:48) Anaphylaxis influenza virus vaccine, specific Adverse Reaction (Mild, Verified 01/29/21 04:48) Vomiting Home Medications: HOME MEDICATIONS Blood-Glucose Meter [Blood Glucose Monitoring] 1 ea MC DAILY 03/02/18 [Last Taken 03/07/18] blood sugar diagnostic See Dose Instructions .ROUTE .MEDSUPPLY #20 ea 06/23/18 [Last Taken Unknown] lancets See Dose Instructions .ROUTE .MEDSUPPLY #50 ea 06/23/18 [Last Taken Unknown] cyclobenzaprine 10 mg tablet 10 mg PO TID PRN #60 tab 08/12/19 [Last Taken Unknown] insulin syringe-needle U-100 1 mL 30 gauge x 5/16" See Dose Instructions .ROUTE .MEDSUPPLY #100 ea 04/03/20 [Last Taken Unknown] sildenafil 100 mg tablet 100 mg PO DAILY PRN #10 tab 04/05/20 [Last Taken Unknown] amlodipine 5 mg tablet 5 mg PO DAILY #90 tab 05/11/20 [Last Taken 01/25/21 03:00] lisinopril 40 mg tablet 40 mg PO DAILY #90 tab 05/11/20 [Last Taken 01/25/21 03:00] montelukast 10 mg tablet 10 mg PO HS #90 tab 05/11/20 [Last Taken 01/24/21 21:00] nortriptyline 25 mg capsule 25 mg PO HS #90 cap 05/11/20 [Last Taken 01/24/21 21:00] pantoprazole 20 mg tablet,delayed release 20 mg PO DAILY #90 tab 05/11/20 [Last Taken 01/25/21 03:00] rosuvastatin 40 mg tablet 40 mg PO HS #90 tab 05/11/20 [Last Taken 01/24/21 21:00] sertraline 50 mg tablet 50 mg PO DAILY #90 tab 05/11/20 [Last Taken 01/25/21 03:00] tramadol 50 mg tablet 50 mg PO Q6H PRN #60 tab 10/30/20 [Last Taken 01/18/21] triamcinolone acetonide 0.1 % topical cream 1 applic TP BID #80 g 10/30/20 [Last Taken 01/25/21] fenofibrate nanocrystallized 145 mg tablet 145 mg PO DAILY #30 tab 11/27/20 [Last Taken 01/25/21 03:00] albuterol sulfate 90 mcg/actuation aerosol inhaler 2 inh IH QID PRN #18 g 11/28/20 [Last Taken Unknown] Syringe and Needle,Insulin,1Ml [Techlite Insulin Syringe] 1 b SQ .MEDSUPPLY 01/25/21 [Last Taken Unknown] Aspirin [Aspirin Chewable] 81 mg PO DAILY #30 tab.chew 01/26/21 [Last Taken Unknown] Insulin Detemir [Levemir] 70 units SC BID 01/26/21 [Last Taken 01/25/21 03:00] Metoprolol Succinate [Toprol Xl] 25 mg PO DAILY #30 tablet.sa 01/26/21 [Last Taken Unknown] Narrative: Patient states he woke around 3 AM to go to work. Is the got ready and left for work he began to feel more and more chest pain and on the way to work he decided to come to the ER. States his chest pain is left-sided radiates up into his neck with a sore feeling and down his left arm with an aching/tingling feeling. He was admitted overnight here 3 days ago for the same complaint and was ruled out for CA by repeated troponins that were negative. He states he was told his primary care would have to do a stress test but his primary care physician is still out of town. Timing: getting worse Severity/Quality: moderate, aching, pressure Location: left chest Chest Pain Radiation: jaw, arms Activities at Onset: activity Nitro Today/Relief: no nitro taken today Aspirin Treatment Today: 81 mg x 1 - At home, 81 mg x 4, provided by ED Associated Symptoms: Present: headache, shortness of breath Prior Chest Pain/Cardiac Workup: Reports: prior chest pain Prior Treatment: Reports: recently seen, treated by physician, recently hospitalized Review of Systems - Review of Systems Constitutional: Absent: recent illness, fever, chills EYE: Absent: vision changes ENT: Absent: nose congestion, nasal drainage, sore throat Respiratory: Present: See HPI, shortness of breath. Absent: cough Cardiology: Present: See HPI. Absent: palpitations, edema Gastrointestinal/Abdominal: Absent: nausea, vomiting Genitourinary: Absent: frequency, dysuria Musculoskeletal: Absent: back pain, muscle pain Skin: Absent: rash, change in color Neurological: Present: headache, tingling - left arm. Absent: dizziness/light- headedness Endocrine: Absent: excessive sweating Hematologic/Lymphatic: Absent: easy bruising Medical History (Last Reviewed 01/29/21 @ 05:00 by Kvng Pastor DO) Diverticulosis (Chronic) Onset Date: 03/08/18 Diabetes mellitus, type 2 (Chronic) HTN (hypertension) (Chronic) HLD (hyperlipidemia) (Chronic) GERD (gastroesophageal reflux disease) (Chronic) Asthma (Chronic) Onset Date: Unknown Allergy to influenza vaccine Onset Date: Unknown Hypercholesteremia Acute nontraumatic kidney injury Arm pain, medial Conjunctivitis, viral Hyperkalemia Onset Date: 10/24/16 Noncompliance with medication regimen Otitis externa Onset Date: 01/30/15 Sinusitis Onset Date: 02/15/15 Thrombophlebitis arm Diabetic eye exam Onset Date: 02/26/18 Diabetic retinopathy was not found in either eye. Acute kidney failure Onset Date: 10/24/16 Hyperglycemia due to type 2 diabetes mellitus Surgical History: Surgical History (Last Reviewed 01/29/21 @ 05:00 by Kvng Pastor DO) History of colonoscopy Onset Date: 03/08/18 Dr. Vineet Hi, [facility]. Diverticulosis. Repeat 10 years. History of nasal surgery Onset Date: Unknown History of tonsillectomy Onset Date: Unknown History of vasectomy Onset Date: Unknown Family History: Family History (Last Reviewed 01/29/21 @ 05:00 by Kvng Pastor DO) Mother Myocardial infarction History of stroke Sister Cancer Father Myocardial infarction Internal bleeding Social History: (Last Reviewed 01/29/21 @ 05:00 by Kvng Pastor DO) Social History: adopted: No Marital status: lives independently: Yes household members: none number of children: 4 current occupational status: employed current occupation: [employer] current occupational exposures/hazards: No Service: No Tobacco: Smoking Status: Former smoker Smokeless tobacco user: chewing tobacco Alcohol: alcohol intake: current Alcohol type: beer alcohol intake frequency: a few times a week Substance Use: substance use type: former substance user Dietary Habits: caffeine: Yes Physical Exam - Physical Exam General Appearance: Present: wd/wn, alert, no apparent distress Head Exam: Present: normal inspection, no evidence of injury Ears, Nose, Throat: Present: normal ENT inspection Neck: Present: normal inspection, nontender, supple Respiratory: Present: no respiratory distress, normal breath sounds, chest nontender, lungs clear Cardiovascular/Chest: Present: irregularly irregular - Normal rate Gastrointestinal/Abdominal: Present: normal bowel sounds, nontender, nondistended, soft Back Exam: Present: normal inspection, normal range of motion, no vertebral tenderness Extremity Exam: Present: normal inspection, normal range of motion, no edema Neurological Exam: Present: alert, oriented, normal mood/affect, no motor/sensory deficits Skin Exam: Present: normal color, warm/dry Lymphatic Exam: Present: no adenopathy Progress - Results and Orders Patient's Lab Results:: I have reviewed the patient's lab results. - Vital Signs Patient's Vital Signs:: I have reviewed the patient's vital signs. - EKG EKG #1 EKG: atrial fibrillation, no ST T wave changes EKG read: Interp. by me - X-Ray X-Ray #1 X-Ray: chest Interpretation: Interp. by me X-ray Comments: No infiltrate or effusion. Cardiac silhouette appears normal. No pneumothorax. Bony elements intact - Progress/Reassessment Progress Note-Subjective: 01/29/21 05:10 Patient given SL nitro x1 which completely relieved his pain. 01/29/21 06:[address] Alberto art halo about admitting the patient she did call me back and we discussed patient she agrees with admission. Departure Clinical Impression: Chest pain Qualifiers: Chest pain type: precordial pain Qualified Code(s): R07.2 - Precordial pain Atrial fibrillation Qualifiers: Atrial fibrillation type: paroxysmal Qualified Code(s): I48.0 - Paroxysmal atrial fibrillation - Departure Disposition: Still a patient Condition: Stable
[2021-01-29 05:12] LABS: Hematocrit 30.8 % (42.0-52.0); Hemoglobin 9.4 gm/dL (13.5-18.0); Mean Cell Volume 84.2 fl (78-100); Mean Corpuscular Hemoglobin 25.7 pg (27-31); Mean Corpuscular Hgb Conc 30.5 g/dl (32-36); Neutrophil # 1.7 K/mm3 (1.3-6.0); Neutrophil % 40.7 % (42-75.0); Platelet Count 129 K/mm3 (150-450); Red Blood Count 3.66 M/mm3 (4.7-6.0); Red Cell Distribution Width 14.6 % (11.5-14.0); White Blood Count 4.2 K/mm3 (4.0-10.5)
[2021-01-29 05:19] LABS: INR 1.06 INR (0.92-1.08); Partial Thrombolplastin Time 25.7 Seconds (24-32)
[2021-01-29 05:26] LABS: ALT 50 U/L (19-67); AST 39 U/L (0-48); Albumin * 3.6 gm/dl (3.4-5.0); Alkaline Phosphatase * 75 U/L (50-170); Anion Gap 12.4 mmol/L (6.8-13.8); BUN/Creatinine Ratio 17.3 (9.0-21.6); Bilirubin, Total 0.2 mg/dL (0.0-1.1); Blood Urea Nitrogen 24 mg/dL (6-23); Ca. Corrected For Albumin 8.8 mg/dL (8.4-10.2); Calcium * 8.8 mg/dL (7.9-10.9); Carbon Dioxide 25.5 mmol/L (24-32.6); Chloride 105 mmol/L (97-106); Glucose * 159 mg/dL (70-110); Potassium 3.9 mmol/L (3.4-4.6); Sodium 139 mmol/L (132-142); Total Protein 7.3 gm/dL (6.2-8.2)
[2021-01-29 05:28] LABS: Troponin I Less than 0.017 ng/mL (0.00-0.10)
[2021-01-29] MEDS ORDERED: ENOXAPARIN SODIUM 100 MG/ML SYRG SC SCH (06:15)
[2021-01-29] MEDS ORDERED: ALBUTEROL SULFATE 2.5 MG/0.5 ML VIAL.NEB IH PRN (08:18)
--- NOTE | 2021-01-29 08:52 | HPDIS ---
Chief Complaint - Chief Complaint Date of Service: 01/29/21 Time of Service: 08:16 Chief Complaint: Chest pain x 1 week History of Present Illness: 55-year-old male with a past medical history of diabetes mellitus type 2, hyperlipidemia, hypertension, GERD, asthma presents from home with complaints of left-sided chest pain that began around 4 AM. He describes the pain as a squeezing/pressure that radiated down his left arm and up his neck. Pain is rated an 8 out of 10. He presented to the ER and received a dose of nitro with good relief of his symptoms. The patient had been evaluated over the weekend and was admitted for observation of chest pain. He states his chest pain began 1 week ago on has been occurring intermittently. He was discharged home and asked to follow-up with his PCP for stress test. In the ER today his vitals are stable but EKG showed new onset A. fib. He has been admitted for new onset A. fib and chest pain observation. The first troponin today was negative. Medical History (Last Reviewed 01/29/21 @ 07:58 by Boris Rouse RN) Diverticulosis (Chronic) Onset Date: 03/08/18 Diabetes mellitus, type 2 (Chronic) HTN (hypertension) (Chronic) HLD (hyperlipidemia) (Chronic) GERD (gastroesophageal reflux disease) (Chronic) Asthma (Chronic) Onset Date: Unknown Allergy to influenza vaccine Onset Date: Unknown Hypercholesteremia Acute nontraumatic kidney injury Arm pain, medial Conjunctivitis, viral Hyperkalemia Onset Date: 10/24/16 Noncompliance with medication regimen Otitis externa Onset Date: 01/30/15 Sinusitis Onset Date: 02/15/15 Thrombophlebitis arm Diabetic eye exam Onset Date: 02/26/18 Diabetic retinopathy was not found in either eye. Acute kidney failure Onset Date: 10/24/16 Hyperglycemia due to type 2 diabetes mellitus Surgical History: Surgical History (Last Reviewed 01/29/21 @ 07:58 by Boris Rouse RN) History of colonoscopy Onset Date: 03/08/18 Dr. Vineet Hi, [facility]. Diverticulosis. Repeat 10 years. History of nasal surgery Onset Date: Unknown History of tonsillectomy Onset Date: Unknown History of vasectomy Onset Date: Unknown Family History: Family History (Last Reviewed 01/29/21 @ 07:58 by Boris Rouse RN) Mother Myocardial infarction History of stroke Sister Cancer Father Myocardial infarction Internal bleeding Social History: (Last Reviewed 01/29/21 @ 07:58 by Boris Rouse RN) Social History: adopted: No Marital status: lives independently: Yes household members: none number of children: 4 current occupational status: employed current occupation: [employer] current occupational exposures/hazards: No Service: No Tobacco: Smoking Status: Former smoker Smokeless tobacco user: chewing tobacco Alcohol: alcohol intake: current Alcohol type: beer alcohol intake frequency: a few times a week Substance Use: substance use type: former substance user Dietary Habits: caffeine: Yes Review Of Systems (GEN) - Review of Systems Generalized/Overall Review: Absent: Fever Respiratory: Present: Shortness of Breath Cardiac: Present: Chest Pain Abdominal: Absent: Abdominal Pain Misc: All systems neg except as marked Immunizations: IMMUNIZATION HX Immunizations Up to Date Yes History of Influenza Vaccine No Hx Pneumococcal Vaccination No Allergies/Adverse Reactions: Allergies Allergy/AdvReac Type Severity Reaction Status Date / Time shellfish derived Allergy Severe Anaphylaxis Verified 01/29/21 07:58 influenza virus vaccine, AdvReac Mild Vomiting Verified 01/29/21 07:58 specific Home Medications: HOME MEDICATIONS Blood-Glucose Meter [Blood Glucose Monitoring] 1 ea MC DAILY 03/02/18 [Last Taken 03/07/18] blood sugar diagnostic See Dose Instructions .ROUTE .MEDSUPPLY #20 ea 06/23/18 [Last Taken Unknown] lancets See Dose Instructions .ROUTE .MEDSUPPLY #50 ea 06/23/18 [Last Taken Unk nown] cyclobenzaprine 10 mg tablet 10 mg PO TID PRN #60 tab 08/12/19 [Last Taken Unknown] insulin syringe-needle U-100 1 mL 30 gauge x 03/10" See Dose Instructions .ROUTE .MEDSUPPLY #100 ea 04/03/20 [Last Taken Unknown] sildenafil 100 mg tablet 100 mg PO DAILY PRN #10 tab 04/05/20 [Last Taken Unknown] amlodipine 5 mg tablet 5 mg PO DAILY #90 tab 05/11/20 [Last Taken 01/25/21 03:00] lisinopril 40 mg tablet 40 mg PO DAILY #90 tab 05/11/20 [Last Taken 01/25/21 03:00] montelukast 10 mg tablet 10 mg PO HS #90 tab 05/11/20 [Last Taken 01/24/21 21:00] nortriptyline 25 mg capsule 25 mg PO HS #90 cap 05/11/20 [Last Taken 01/24/21 21:00] pantoprazole 20 mg tablet,delayed release 20 mg PO DAILY #90 tab 05/11/20 [Last Taken 01/25/21 03:00] rosuvastatin 40 mg tablet 40 mg PO HS #90 tab 05/11/20 [Last Taken 01/24/21 21:00] sertraline 50 mg tablet 50 mg PO DAILY #90 tab 05/11/20 [Last Taken 01/25/21 03:00] tramadol 50 mg tablet 50 mg PO Q6H PRN #60 tab 10/30/20 [Last Taken 01/18/21] triamcinolone acetonide 0.1 % topical cream 1 applic TP BID #80 g 10/30/20 [Last Taken 01/25/21] fenofibrate nanocrystallized 145 mg tablet 145 mg PO DAILY #30 tab 11/27/20 [Last Taken 01/25/21 03:00] albuterol sulfate 90 mcg/actuation aerosol inhaler 2 inh IH QID PRN #18 g 11/28/20 [Last Taken Unknown] Syringe and Needle,Insulin,1Ml [Techlite Insulin Syringe] 1 b SQ .MEDSUPPLY 01/25/21 [Last Taken Unknown] Aspirin [Aspirin Chewable] 81 mg PO DAILY #30 tab.chew 01/26/21 [Last Taken Unknown] Insulin Detemir [Levemir] 70 units SC BID 01/26/21 [Last Taken 01/25/21 03:00] Metoprolol Succinate [Toprol Xl] 25 mg PO DAILY #30 tablet.sa 01/26/21 [Last Taken Unknown] Apixaban [Eliquis] 5 mg PO BID #30 tab 01/29/21 [Last Taken Unknown] Exam - Exam Vital Signs: Vital Signs - Last Taken Temp 36.2 C 01/29/21 07:59 Pulse 60 01/29/21 07:59 Resp 18 01/29/21 07:59 BP 118/53 01/29/21 07:59 Pulse Ox 100 01/29/21 07:59 Constitutional: Present: Alert, Cooperative, Well developed, Well nourished, No distress, Middle aged ENT Exam: Present: hearing grossly normal, moist mucous membranes Eye Exam: bilateral eye: normal inspection, PERRL, EOMI Neck: Present: non-tender, supple. Absent: lymphadenopathy (R), lymphadenopathy (L) Back Exam: Present: no CVA tenderness, no vertebral tenderness Respiratory: Present: lungs clear, no respiratory distress, no accessory muscle use, No wheezing. Absent: crackles, rhonchi Cardiovascular/Chest: Present: normal peripheral pulses, no edema, no murmur, irregularly irregular Peripheral Pulses: dorsalis-pedis (R): 1+, dorsalis-pedis (L): 1+ Abdomen: Present: Normal bowel sounds, soft, nontender Extremity: Present: no pedal edema Skin Exam: Present: normal color, warm/dry Neurologic: Present: alert, normal mood/affect Appearance: Present: appropriate appearance, appropriate insight Eye contact: Present: cooperative Thoughts: Present: normal mood /affect Diagnostic Studies: Abnormal Lab Results 01/29/21 01/29/21 01/29/21 Range/Units 05:00 05:00 05:00 RBC 3.66 L (4.7-6.0) M/mm3 Hgb 9.4 L (13.5-18.0) gm/dL Hct 30.8 L (42.0-52.0) % MCH 25.7 L (27-31) pg MCHC 30.5 L (32-36) g/dl RDW 14.6 H (11.5-14.0) % Plt Count 129 L (150-450) K/mm3 Neutrophils % 40.7 L (42-75.0) % Monocytes % 11.0 H (0.0-9) % PT 11.0 H (9.1-10.7) Seconds BUN 24 H (6-23) mg/dL Est GFR (Non-Af Amer) 57 L (60-130) mL/min Random Glucose 159 H (70-110) mg/dL Laboratory Results WBC 4.2 K/mm3 (4.0-10.5) 01/29/21 05:00 RBC 3.66 M/mm3 (4.7-6.0) L 01/29/21 05:00 Hgb 9.4 gm/dL (13.5-18.0) L 01/29/21 05:00 Hct 30.8 % (42.0-52.0) L 01/29/21 05:00 MCV 84.2 fl (78-100) 01/29/21 05:00 MCH 25.7 pg (27-31) L 01/29/21 05:00 MCHC 30.5 g/dl (32-36) L 01/29/21 05:00 RDW 14.6 % (11.5-14.0) H 01/29/21 05:00 Plt Count 129 K/mm3 (150-450) L 01/29/21 05:00 MPV 10.0 fl (8-11.3) 01/29/21 05:00 Immature Gran % (Auto) 0.20 % (0.001-0.429) 01/29/21 05:00 Immature Gran # (Auto) 0.01 K/mm3 (0.000-0.0310) 01/29/21 05:00 Neutrophils % 40.7 % (42-75.0) L 01/29/21 05:00 Lymphocytes % 45.2 % (20-51) 01/29/21 05:00 Monocytes % 11.0 % (0.0-9) H 01/29/21 05:00 Eosinophils % 2.2 % (0.0-3.0) 01/29/21 05:00 Basophils % 0.7 % (0.0-1.0) 01/29/21 05:00 Nucleated RBC % 0.0 k/mm3 (0-1) 01/29/21 05:00 Neutrophils # 1.7 K/mm3 (1.3-6.0) 01/29/21 05:00 Lymphocytes # 1.89 k/mm3 (1.5-3.5) 01/29/21 05:00 Monocytes # 0.5 k/mm3 (0.0-1.0) 01/29/21 05:00 Eosinophils # 0.1 k/mm3 (0.0-0.7) 01/29/21 05:00 Absolute Basophils 0.0 k/mm3 (0.0-0.1) 01/29/21 05:00 PT 11.0 Seconds (9.1-10.7) H 01/29/21 05:00 INR (Anticoag Therapy) 1.06 INR (0.92-1.08) 01/29/21 05:00 PTT (Barron) 25.7 Seconds (24-32) 01/29/21 05:00 Sodium 139 mmol/L (132-142) 01/29/21 05:00 Plasma Sodium 140 mmol/L (130-142) 01/29/21 05:00 Potassium 3.9 mmol/L (3.4-4.6) 01/29/21 05:00 Chloride 105 mmol/L (97-106) 01/29/21 05:00 Carbon Dioxide 25.5 mmol/L (24-32.6) 01/29/21 05:00 Anion Gap 12.4 mmol/L (6.8-13.8) 01/29/21 05:00 BUN 24 mg/dL (6-23) H 01/29/21 05:00 Creatinine 1.39 mg/dL (0.4-1.4) 01/29/21 05:00 Est GFR (Non-Af Amer) 57 mL/min (60-130) L 01/29/21 05:00 BUN/Creatinine Ratio 17.3 (9.0-21.6) 01/29/21 05:00 Random Glucose 159 mg/dL (70-110) H 01/29/21 05:00 Calcium 8.8 mg/dL (7.9-10.9) 01/29/21 05:00 Calcium Adj for Albumin 8.8 mg/dL (8.4-10.2) 01/29/21 05:00 Total Bilirubin 0.2 mg/dL (0.0-1.1) 01/29/21 05:00 AST 39 U/L (0-48) 01/29/21 05:00 ALT 50 U/L (19-67) 01/29/21 05:00 Alkaline Phosphatase 75 U/L (50-170) 01/29/21 05:00 Troponin I Less than 0.017 ng/mL (0.00-0.10) 01/29/21 05:00 Total Protein 7.3 gm/dL (6.2-8.2) 01/29/21 05:00 Albumin 3.6 gm/dl (3.4-5.0) 01/29/21 05:00 SARS-CoV-2 (PCR) Not detected (NotDetected) 01/29/21 06:24 Assessment/Plan - Narrative Narrative: 55-year-old male with a past medical history of diabetes mellitus type 2, hyperlipidemia, hypertension, GERD, asthma presents from home with complaints of left-sided chest pain that began around 4 AM. He describes the pain as a squeezing/pressure that radiated down his left arm and up his neck. He presented to the ER and received a dose of nitro with good relief of his symptoms. The patient had been evaluated over the weekend and was admitted for observation of chest pain. He was discharged home and asked to follow-up with his PCP for stress test. In the ER today his vitals are stable but EKG showed new onset A. fib. He has been admitted for new onset A. fib and chest pain observation. The first troponin today was negative. If repeat troponin remains negative he will be able to be discharged later today. He states his chest pain has resolved. Plan #1 repeat troponin #2 start Eliquis 5 mg twice daily for new onset A. fib and a CHADS2 score 2 #3 resume home medications for comorbidities - Assessment/Plan (1) Chest pain Problem: Acute Qualifiers: Chest pain type: precordial pain Qualified Code(s): R07.2 - Precordial pain (2) Atrial fibrillation Problem: Acute Qualifiers: Atrial fibrillation type: paroxysmal Qualified Code(s): I48.0 - Paroxysmal atrial fibrillation (3) Diabetes mellitus, type 2 Problem: Chronic Qualifiers: Diabetes mellitus intermediate insulin use: with intermediate use Diabetes mellitus complication status: without complication Qualified Code(s): E11.9 - Type 2 diabetes mellitus without complications; Z79.4 - [facility]CI (current) use of insulin (4) HTN (hypertension) Problem: Chronic Qualifiers: Hypertension type: essential hypertension Qualified Code(s): I10 - Essential (primary) hypertension (5) HLD (hyperlipidemia) Problem: Chronic Qualifiers: Hyperlipidemia type: unspecified Qualified Code(s): E78.5 - Hyperlipidemia, unspecified (6) GERD (gastroesophageal reflux disease) Problem: Chronic Qualifiers: Esophagitis presence: without esophagitis Qualified Code(s): K21.9 - Gastro-esophageal reflux disease without esophagitis (7) Asthma Problem: Chronic (1) Chest pain Problem: Acute Qualifiers: Chest pain type: precordial pain Qualified Code(s): R07.2 - Precordial pain (2) Atrial fibrillation Problem: Acute Qualifiers: Atrial fibrillation type: paroxysmal Qualified Code(s): I48.0 - Paroxysmal atrial fibrillation (3) Diabetes mellitus, type 2 Problem: Chronic Qualifiers: Diabetes mellitus terminologist insulin use: with intermediate use Diabetes mellitus complication status: without complication Qualified Code(s): E11.9 - Type 2 diabetes mellitus without complications; Z79.4 - [facility]CI (current) use of insulin (4) HTN (hypertension) Problem: Chronic Qualifiers: Hypertension type: essential hypertension Qualified Code(s): I10 - Essential (primary) hypertension (5) HLD (hyperlipidemia) Problem: Chronic Qualifiers: Hyperlipidemia type: unspecified Qualified Code(s): E78.5 - Hyperlipidemia, unspecified (6) GERD (gastroesophageal reflux disease) Problem: Chronic Qualifiers: Esophagitis presence: without esophagitis Qualified Code(s): K21.9 - Gastro-esophageal reflux disease without esophagitis (7) Asthma Problem: Chronic Hospital Course: 55-year-old male with a past medical history of diabetes mellitus type 2, hyperlipidemia, hypertension, GERD, asthma presents from home with complaints of left-sided chest pain that began around 4 AM. He describes the pain as a squeezing/pressure that radiated down his left arm and up his neck. He presented to the ER and received a dose of nitro with good relief of his symptoms. The patient had been evaluated over the weekend and was admitted for observation of chest pain. He was discharged home and asked to follow-up with his PCP for stress test. In the ER today his vitals are stable but EKG showed new onset A. fib. He has been admitted for new onset A. fib and chest pain observation. The first troponin today was negative. If repeat troponin remains negative he will be able to be discharged later today. He states his chest pain has resolved. I will start him on Eliquis 5 mg twice daily due to a CHADS2 score of 2 in the setting of new onset A. fib. Repeat troponin was negative. The patient is stable for discharge home today. He will follow-up with his PCP for an outpatient stress test. Procedures Performed: none Results and Findings: Lab Pending Results 01/29/21 05:00: WBC 4.2, RBC 3.66 L, Hgb 9.4 L, Hct 30.8 L, MCV 84.2, MCH 25.7 L, MCHC 30.5 L, RDW 14.6 H, Plt Count 129 L, MPV 10.0, Immature Gran % (Auto) 0.20, Immature Gran # (Auto) 0.01, Neutrophils % 40.7 L, Lymphocytes % 45.2, Monocytes % 11.0 H, Eosinophils % 2.2, Basophils % 0.7, Nucleated RBC % 0.0, Neutrophils # 1.7, Lymphocytes # 1.89, Monocytes # 0.5, Eosinophils # 0.1, Absolute Basophils 0.0 01/29/21 05:00: PT 11.0 H, INR (Anticoag Therapy) 1.06, PTT (Dougie) 25.7 01/29/21 05:00: Sodium 139, Plasma Sodium 140, Potassium 3.9, Chloride 105, Carbon Dioxide 25.5, Anion Gap 12.4, BUN 24 H, Creatinine 1.39, Est GFR (Non-Af Amer) 57 L, BUN/Creatinine Ratio 17.3, Random Glucose 159 H, Calcium 8.8, Ca lcium Adj for Albumin 8.8, Total Bilirubin 0.2, AST 39, ALT 50, Alkaline Phosphatase 75, Troponin I Less than 0.017, Total Protein 7.3, Albumin 3.6 01/29/21 06:24: SARS-CoV-2 (PCR) Not detected Discharge Location: Home Disposition: Home self-care Condition: Stable Discharge Activity: Activity as tolerated Discharge Diet: Consistent carbs Referrals: Miguel Angel Jacobo DO [Primary Care Provider] - Additional Patient Instructions (free text): Follow up with Dr. Jacobo February 07 at 8:30 a.m. You will get a call when stress test is set up. Prescriptions (Any new or edited meds): Apixaban [Eliquis] 5 mg PO BID #30 tab Transmission Status: Received by PT [facility] #[id number] Complete Home Medications List: Complete Home Medication List: Blood-Glucose Meter [Blood Glucose Monitoring] 1 ea DAILY 03/02/18 blood sugar diagnostic See Dose Instructions .ROUTE .MEDSUPPLY #20 ea 06/23/18 lancets See Dose Instructions .ROUTE .MEDSUPPLY #50 ea 06/23/18 cyclobenzaprine 10 mg tablet 10 mg PO TID PRN #60 tab 08/12/19 insulin syringe-needle U-100 1 mL 30 gauge x 03/10" See Dose Instructions .ROUTE .MEDSUPPLY #100 ea 04/03/20 sildenafil 100 mg tablet 100 mg PO DAILY PRN #10 tab 04/05/20 amlodipine 5 mg tablet 5 mg PO DAILY #90 tab 05/11/20 lisinopril 40 mg tablet 40 mg PO DAILY #90 tab 05/11/20 montelukast 10 mg tablet 10 mg PO HS #90 tab 05/11/20 nortriptyline 25 mg capsule 25 mg PO HS #90 cap 05/11/20 pantoprazole 20 mg tablet,delayed release 20 mg PO DAILY #90 tab 05/11/20 rosuvastatin 40 mg tablet 40 mg PO HS #90 tab 05/11/20 sertraline 50 mg tablet 50 mg PO DAILY #90 tab 05/11/20 tramadol 50 mg tablet 50 mg PO Q6H PRN #60 tab 10/30/20 triamcinolone acetonide 0.1 % topical cream 1 applic TP BID #80 g 10/30/20 fenofibrate nanocrystallized 145 mg tablet 145 mg PO DAILY #30 tab 11/27/20 albuterol sulfate 90 mcg/actuation aerosol inhaler 2 inh IH QID PRN #18 g 11/28/20 Syringe and Needle,Insulin,1Ml [Techlite Insulin Syringe] 1 b SQ .MEDSUPPLY 01/25/21 Aspirin [Aspirin Chewable] 81 mg PO DAILY #30 tab.chew 01/26/21 Insulin Detemir [Levemir] 70 units SC BID 01/26/21 Metoprolol Succinate [Toprol Xl] 25 mg PO DAILY #30 tablet.sa 01/26/21 Apixaban [Eliquis] 5 mg PO BID #30 tab 01/29/21 Forms: Patient Portal Registration
[2021-01-29] MEDS ORDERED: METOPROLOL SUCCINATE 25 MG TABLET.SA PO SCH (09:00)
[2021-01-29] MEDS ORDERED: LISINOPRIL 40 MG TABLET PO SCH (09:00)
[2021-01-29] MEDS ORDERED: INSULIN GLARGINE,HUM.REC.ANLOG 100 UNITS/ML VIAL SC SCH (09:00)
[2021-01-29] MEDS ORDERED: PANTOPRAZOLE SODIUM 20 MG TABLET.DR PO SCH (09:00)
[2021-01-29] MEDS ORDERED: SERTRALINE HCL 50 MG TABLET PO SCH (09:00)
[2021-01-29] MEDS ORDERED: FENOFIBRATE,MICRONIZED 134 MG CAPSULE PO SCH (09:00)
[2021-01-29] MEDS ORDERED: ASPIRIN 81 MG TAB.CHEW PO SCH (09:00)
[2021-01-29] MEDS ORDERED: amLODIPine BESYLATE 5 MG TABLET PO SCH (09:00)
[2021-01-29 15:21] VITALS: BP 117/78
[2021-01-29] MEDS ORDERED: NORTRIPTYLINE HCL 25 MG CAPSULE PO SCH (21:00)
[2021-01-29] MEDS ORDERED: ROSUVASTATIN CALCIUM 20 MG TABLET PO SCH (21:00)
[2021-01-29] MEDS ORDERED: MONTELUKAST SODIUM 10 MG TABLET PO SCH (21:00)
== END 2021-01-29 12:33 | disposition home or self-care (01) ==
LOC: MS 04:40 → ER 04:40 → MS 07:40
PROVIDERS: ADMIT Internal Medicine; ATTEND Family Medicine